=== PATIENT | female | born 1970 | race Hispanic/Latino ===

== ENCOUNTER → 2021-10-28 | Day surgery (SDC) | payer OTHER ==
[~2021-10-28] MED LIST: DIAMOX; FENTANYL CITRATE/PF 100MCG/2 ML INJ ONE; HAIR, SKIN & N1 EACH; HYOSCYAMINE SULFATE 0.5 MG/ML INJ ONE; LIDOCAINE HCL 2% LOCAL INJ 5 ML SDV VIAL INJ ONE; MIDAZOLAM HCL 2 MG/2 ML VIAL ONE; PROPOFOL IV EMULSION 10 MG/ML 20 ML VIAL ONE; TUMERIC; VITAMIN D32400 UNIT/; ZEGERID 40 MG1 EACH; ZINC
[2021-10-28 12:15] VITALS: BP 124/76
== END | disposition home or self-care (01) ==
LOC: OR 09:37
PROVIDERS: ATTEND Internal Medicine Gastroenterology
DX: Z09 Encounter for follow-up examination after completed treatment for conditions other than malignant neoplasm (principal); Z86.010 Personal history of colon polyps; K57.30 Diverticulosis of large intestine without perforation or abscess without bleeding; K64.8 Other hemorrhoids; K29.70 Gastritis, unspecified, without bleeding; K21.9 Gastro-esophageal reflux disease without esophagitis; G93.2 Benign intracranial hypertension; R06.83 Snoring; I10 Essential (primary) hypertension; Z91.040 Latex allergy status; Z91.048 Other nonmedicinal substance allergy status; Z01.810 Encounter for preprocedural cardiovascular examination; Z01.812 Encounter for preprocedural laboratory examination; Z20.822 Contact with and (suspected) exposure to COVID-19; Z79.899 Other long term (current) drug therapy; Z68.31 Body mass index [BMI] 31.0-31.9, adult
CPT/HCPCS: 45380; 93005; J1980; J2001; J2250; J2704; J3010; U0002; 45378